=== PATIENT | male | born 1960 ===

== ENCOUNTER 2017-08-17 05:55 | Day surgery (SDC) | payer OTHER ==
[2017-08-10 09:17] VITALS: BMI 25.7
[2017-08-17] MEDS ORDERED: Propofol 10 mg/ml Inj (20 ML) ONE (07:37)
[2017-08-17] MEDS ORDERED: Rocuronium 10 mg/ml (5 ml) ONE ×2 (07:37→07:38)
[2017-08-17] MEDS ORDERED: Midazolam 2 MG/2 ML VIAL ONE (07:37)
--- NOTE | 2017-08-17 07:38 | CP.SDSHP ---
Same Day Surgery H & P - History Proposed Procedure: Left radial head replacement Pre-Op Diagnosis: Left radial head fracture/malunion - Previous Medical/Surgical History Cardiac: Hypertension Comments: Depression. 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 Patient counseled on the risks of addiction, physical or psychological dependence, and overdose associated with opioid drugs and the danger of taking opioid drugs with alcohol and other central nervous system depressants, and cautioned patient on storage and disposal. - Impression Impression: 56M with left radial head fracture for replacement Pt. Evaluated Today:Candidate for Anesthesia & Procedure: Yes - Date & Time Date: 08/17/17 Time: 07:38 Short Stay Discharge - Short Stay Discharge Admitting Diagnosis/Reason for Visit: FRACTURE ELBOW Disposition: HOME/ ROUTINE Past Patient History - Past Medical History & Family History Past Medical History?: Yes - Past Social History Smoking Status: Heavy Smoker > 10 Cigarettes Daily - CARDIAC Hx Hypertension: Yes - PULMONARY Hx Respiratory Disorders: No - NEUROLOGICAL Hx Neurological Disorder: No - HEENT Hx HEENT Problems: No - RENAL Hx Chronic Kidney Disease: No - ENDOCRINE/METABOLIC Hx Endocrine Disorders: No - HEMATOLOGICAL/ONCOLOGICAL Hx Blood Disorders: No - INTEGUMENTARY Hx Dermatological Problems: No - MUSCULOSKELETAL/RHEUMATOLOGICAL Hx Musculoskeletal Disorders: Yes (hx left dislocated shoulder) Hx Fractures: Yes (left ankle) Hx Osteoarthritis: Yes - GASTROINTESTINAL Hx Gastrointestinal Disorders: No - GENITOURINARY/GYNECOLOGICAL Hx Genitourinary Disorders: No - PSYCHIATRIC Hx Psychophysiologic Disorder: No - SURGICAL HISTORY Hx Surgeries: Yes Hx Joint Replacement: Yes (bilat hips) Hx Open Reduction Internal Fixation: Yes (left ankle) - ANESTHESIA Hx Anesthesia: Yes Hx Anesthesia Reactions: No Hx Malignant Hyperthermia: No Has any member of the family had a problem w/ anesthesia?: No
[2017-08-17] MEDS ORDERED: Lidocaine Hydrochloride 5 ML INJ ONE (07:42)
[2017-08-17] MEDS ORDERED: Bupivacaine 0.5% Inj(30mL) ONE (07:43)
[2017-08-17] MEDS ORDERED: Lactated Ringer's 1,000 ML IV ONE ×2 (07:45→09:10)
[2017-08-17] MEDS ORDERED: Clindamycin 600mg/50ml NS 600 MG/50 ML BAG IVPB ONE (08:01)
[2017-08-17] MEDS ORDERED: ePHEDrine 50 mg/ml Inj ONE (08:13)
[2017-08-17] MEDS ORDERED: Phenylephrine 10 mg/ml Inj ONE (08:14)
[2017-08-17] MEDS ORDERED: Neostigmine Methylsulfate 3mg/3ml Syringe IV ONE (09:45)
[2017-08-17] MEDS ORDERED: Bacitracin Ointment 30 GM TUBE ONE (09:50)
[2017-08-17] MEDS ORDERED: HYDROmorphone 0.5 mg/0.5 ml ISec ONE ×2 (10:14→10:16)
--- NOTE | 2017-08-17 10:14 | PCM.SURG1 ---
Surgeon's Initial Post Op Note - Surgeon's Notes Surgeon: [employer] Showman: VALENTINA Hoffman CRNFA Type of Anesthesia: General Endo Anesthesia Administered By: DR Carola Lima Pre-Operative Diagnosis: Displaced/comminuted L radial head fracture Operative Findings: Displaced/comminuted L radial head fx Post-Operative Diagnosis: same Operation Performed: L Radial HEAD REPLACEMENT. ARTHROTOMY/SYNOVECTOMY l ELBOW. ALLOGRAFT,AUTOGRAFT BONE GRAFT TO l RADIAL HEAD Specimen/Specimens Removed: RADIAL HEAD FRACTURE Estimated Blood Loss: EBL {In ML}: 5 Blood Products Given: N/A Drains Used: No Drains Post-Op Condition: Good Date of Surgery/Procedure: 08/17/17 Time of Surgery/Procedure: 08:35 (TIME IN ROOM 7:45)
--- NOTE | 2017-08-17 10:56 | PCM.ANESB1 ---
Interscalene Block - Brachial Plexus Date of Procedure: 08/17/17 Anesthesiologist: Carola Givens Pre-Procedure Diagnosis: Left Radial Head Fracture Procedure Performed: Interscalene Block of Brachial Plexus Left - Procedure Interscalene Block of Brachial Plexus: This procedure was explained to the patient that it is for post-operative pain management. Consent was obtained after a thorough discussion with the patient regarding the benefits and possible complications of local anesthetic block of the Brachial Plexus at the Interscalene area. The patient was brought to the Post Anesthesia Care Unit Room and standard monitors were applied. Time out was held with the pacu nurse to confirm the correct surgery and appropriate block. After applying Oxygen by nasal cannula and administering IV Sedation, the patient's head was gently rotated away from the left operative shoulder and the anterior scalene groove was carefully palpated. The ultrasound transducer was then applied to the skin in the transverse plane and the brachial plexus was visualized lateral to the carotid artery and in between the anterior and middle scalene muscles. After identification,the anterior lateral portion of the neck was prepped with Betadine solution three times and Lidocaine 1% was injected subcutaneously for topical analgesia. At this point, a # 22 gauge Stimuplex 2 inches insulated needle was inserted into the interscalene groove and directed in a caudal and midline direction. The needle was inserted lateral to the ultrasound transducer in-plane towards the brachial plexus in a [id number] direction. Needle advancement was performed carefully under direct ultrasound visualization. Nerve stimulator was used and twitched of the affected extremity including the hand brachialis muscles, biceps and the deltoid was obtained at a current of __0.4 MA. After repeated negative aspiration, 15cc of__0.5%,___bupivacaine was injected. Under ultrasound guidance the local anesthetics were observed surrounding the roots of the brachial plexus. The needle was removed intact and sterile dressing was applied. The patient had stable vital signs, was conscious and in no apparent distress. The patient tolerated the interscalene block of the bracheal plexus well with stable vital signs.
[2017-08-17] MEDS ORDERED: HYDROmorphone 0.5 mg/0.5 ml ISec IVP PRN (11:01)
[2017-08-17] MEDS ORDERED: Lactated Ringer's 1,000 ML IV SCH (11:15)
[2017-08-17 12:34] VITALS: BP 127/80; PULSE 84; RESP 18; TEMP 98; O2SAT 96
--- NOTE | 2017-08-17 14:34 | RAD ---
Left elbow radiographs Indication: pt in PACU s/p radial head replacement Comparison: None available Findings: Postsurgical changes consistent with radial head replacement which appears in satisfactory alignment. Surgical skin pedro. Subcutaneous emphysema. Images are obtained through a splint. No acute displaced fracture or dislocation. Impression: Postsurgical changes consistent with radial head replacement as above.
--- NOTE | 2017-08-18 14:15 | OP ---
PROCEDURE DATE: 08/17/2017 PREOPERATIVE DIAGNOSIS: Displaced, comminuted left radial head fracture. POSTOPERATIVE DIAGNOSIS: Displaced, comminuted left radial head fracture. OPERATIVE PROCEDURE: 1. Left radial head replacement. 2. Radial shaft osteotomy (osteotomy was accomplished with the oscillating saw). 3. Arthrotomy synovectomy, radiohumeral joint. 4. Allograft and bone graft. 5. Capsular reconstruction. 6. Application of posterior splint. SURGEON: Dr. Varela. BOOK EDITOR: Moise Koch PA-C SECOND PROVIDER RELATIONS CONSULTANT: Marcella Lockwood, certified registered nursing collections assistant. No complications. No drains. OPERATIVE INDICATION: The patient is a 56-year-old gentleman who has undergone bilateral total hip replacement arthroplasty, presents after a fall in the upper extremity. The patient has marked discomfort, pain and restricted range of motion. The patient was splinted, discharged from emergency room, presented to my office. The patient was taken to [facility] because of insurance considerations. Pros, cons, risks, and benefits of surgical approach were discussed; the possibility of stiffness, nerve injury, mechanical failure, infection, thromboembolic disease, secondary or tertiary surgery were discussed. The patient wished the surgery to be accomplished. OPERATIVE PROCEDURE: After having obtained informed consent, after having identified site, side and procedure and a clinical pause/time-out after satisfactory induction of the anesthetic, the patient identified as the patient in the supine position with all bony prominences well padded. The left upper extremity was prepped and re-draped in the usual fashion for upper extremity surgery. The tourniquet has been applied, but is not yet inflated. After sterilely prepping and draping, after having obtained informed consent in the above the fashion, after the satisfactory induction of general endotracheal anesthesia by Dr. Carola Givens, the left upper extremity was exsanguinated using a 4-inch Esmarch bandage. Tourniquet which had been applied was inflated to 250 mmHg. The operation was performed under 2.0 magnification eye glass. An incision was described 2 fingerbreadths proximal to the lateral epicondyle of the elbow, extending distally superficial of the radial head. The radial head was found by pronation, supination and found to be comminuted. The skin incision was carried down to the skin, subcutaneous tissue. Stay sutures were placed. Hemostasis was controlled with electrocautery. The dissection was carried out from the lateral ridge of the distal humerus to the capitulum and the soft tissues were debrided anteriorly and posteriorly. This having been accomplished, the capsule was identified. The operation was performed with the forearm in pronation. The forearm was placed in pronation to avoid injury to the posterior interosseous branch to the radial nerve. This having been accomplished, the capsule was carefully identified and divided. It was found to be a comminuted, displaced distal radial head fracture which is essential irreparable in terms of open reduction and internal fixation. At a point approximately 14 mm distal to the radial head, the osteotomy was accomplished using the oscillating saw. All fragments of the radial head were removed. Arthrotomy and synovectomy at this point of the radiohumeral joint were accomplished. Arthrotomy and synovectomy having been accomplished, the radial neck osteotomy having been accomplished, the canal was found and sequential broaching was carried out to the appropriate size 8-mm broach. This having been accompanied, trialing was accomplished with a trial with the 16-mm head and the foot was found to excellent. The elbow was reduced and found to be stable in flexion, extension, pronation and supination. The wound was thoroughly irrigated. At this point in time, the canal was prepared. Allograft bone graft was accomplished using 0.5 mL of DBX. The radial head replacement stem was introduced and found to be acceptable and stable. The 16-mm head was affixed to the post and held with the setscrew. The elbow was reduced, again found to be stable in pronation, supination not too tight, flexion and extension are stable. No varus valgus instability. Overall alignment was found to be acceptable. The wound was thoroughly irrigated. The capsule was reconstructed with interrupted nonabsorbable and absorbable suture and closure was in layers with interrupted nonabsorbable and absorbable suture for the anterior and posterior suture tissue sleeve from the lateral ridge of the humerus. The wound was thoroughly irrigated, closure was in layers with 2-0 Vicryl, pedro for skin. Naeem Turcios compression dressing and posterior splint were applied. Posterior x-rays revealed acceptable position of the contrast. George Varela MD [facility] # [id number]
== END 2017-08-17 12:37 | disposition home or self-care (01) ==
LOC: C.SDS 05:55
PROVIDERS: ATTEND Orthopaedic Surgery
DX: S52.122A Displaced fracture of head of left radius, initial encounter for closed fracture (principal); I10 Essential (primary) hypertension; F17.210 Nicotine dependence, cigarettes, uncomplicated; Z88.0 Allergy status to penicillin; W18.39XA Other fall on same level, initial encounter
CPT/HCPCS: 24102; 24365; 73080; 88304; 88305; 88311; C1713; C1776; J1100; J1170; J2250; J2370; J2704; J2710; J3010; J7120